=== PATIENT | male | born 2000 | race Two or more races ===

== ENCOUNTER 2024-02-14 14:19 | Emergency (ER) | payer SELFPAY ==
[~2024-02-14] VITALS: Ht 172.7 cm; Wt 95.5 kg
[2024-02-14] MEDS ORDERED: PREG200C29 PO (16:33)
[2024-02-14 16:45] VITALS: BP 142/62; PULSE 88; RESP 16; TEMP 98.8; O2SAT 99
== END 2024-02-14 16:48 | disposition home or self-care (01) ==
LOC: ER 14:20
DX: G89.29 Other chronic pain (principal); M54.9 Dorsalgia, unspecified; Z76.0 Encounter for issue of repeat prescription
CPT/HCPCS: 99281